=== PATIENT | female | born 1970 | race Caucasian/White ===

== ENCOUNTER 2019-05-13 08:16 | Emergency (ER) | payer MEDICAID ==
[~2019-05-13] VITALS: Ht 167.6 cm; Wt 75.0 kg
[2019-05-13] MEDS ORDERED: normal saline 1000ML IV soln IVB ONE (08:40)
--- NOTE | 2019-05-13 09:25 | NUR ---
Patient is still only responding to painful stimuli. Her sats are in the high 90s but she is snoring a npa was inserted per Dr. Osborn order
[2019-05-13 09:34] LABS: BASOPHILS % (AUTO) 0.6 % (0-1); EOSINOPHILS # (AUTO) 0.2 X10'3 (0-0.9); EOSINOPHILS % (AUTO) 2.4 % (0-6); HEMATOCRIT 37.5 % (35.0-45.0); HEMOGLOBIN 12.6 g/dl (12.0-16.0); LYMPHOCYTES # (AUTO) 2.2 X10'3 (1.1-4.8); LYMPHOCYTES % (AUTO) 30.7 % (21-51); MEAN CORPUSCULAR HEMOGLOBIN 29.4 PG (27.0-31.0); MEAN CORPUSCULAR HGB CONC 33.5 g/dL (33.0-36.5); MEAN CORPUSCULAR VOLUME 87.8 FL (78-98); MEAN PLATELET VOLUME 8.2 FL (7.4-10.4); MONOCYTES # (AUTO) 0.5 X10'3 (0-0.9); NEUTROPHILS # (AUTO) 4.3 X10'3 (1.8-7.7); NEUTROPHILS % (AUTO) 59.3 % (42-75); PLATELET COUNT 278 X10'3 (140-440); RED BLOOD COUNT 4.27 X10'6 (4.20-5.60); RED CELL DISTRIBUTION WIDTH 14.3 % (11.5-14.5); WHITE BLOOD COUNT 7.2 X10'3 (4.5-11.0)
[2019-05-13 09:35] LABS: CLARITY,URINE CLOUDY (Clear); COLOR,URINE STRAW (Yellow); GLUCOSE, URINE NEGATIVE (Neg); KETONES,URINE NEGATIVE (Neg); LEUKOCYTE ESTERASE ,URINE MODERATE (Neg); NITRITES, URINE NEGATIVE (Neg); OCCULT BLOOD,URINE SMALL (Neg); PH,URINE 5.5 (4.8-8.0); PROTEIN,URINE NEGATIVE (Neg); UROBILINOGEN,URINE 0.2 E.U/dL (0.2-1.0)
[2019-05-13 09:37] LABS: UA COLLECTION TYPE STRAIGHT CATH
[2019-05-13 09:40] LABS: SQUAMOUS EPITHELIAL CELL,UR FEW /LPF (FEW); WBC CLUMPS,URINE MANY /HPF (NEGATIVE); WBC,URINE TNTC /HPF (0-4)
[2019-05-13 09:41] LABS: BACTERIA,URINE 2+ /HPF (Neg); RBC,URINE 0-2 /HPF (0-2); TRANSITIONAL EPI CELLS,URINE FEW /HPF
[2019-05-13 09:45] LABS: PARTIAL THROMBOPLASTIN TIME 32 SECONDS (22-32)
[2019-05-13] MEDS ORDERED: CefTRIAXone/D5W-Rocephin 1gm 50 ML IV ONE (09:45)
[2019-05-13 09:49] LABS: URINE AMPHETAMINE SCREEN POSITIVE (Neg); URINE BARBITUATE SCREEN NEGATIVE (Neg); URINE BENZODIAZEPINES SCREEN NEGATIVE (Neg); URINE CANNABINOID SCREEN NEGATIVE (Neg); URINE COCAINE SCREEN NEGATIVE (Neg); URINE METHADONE SCREEN NEGATIVE (Neg); URINE OPIATE SCREEN POSITIVE (Neg); URINE PHENCYCLIDINE SCREEN NEGATIVE (Neg)
[2019-05-13 09:52] LABS: ALANINE AMINOTRANSFERASE 16 U/L (12-78); ALBUMIN 3.2 G/DL (3.4-5.0); ALKALINE PHOSPHATASE 100 IU/L (46-116); ANION GAP 2 (8-16); ASPARTATE AMINO TRANSFERASE 14 U/L (10-37); BILIRUBIN,TOTAL 0.4 MG/DL (0.1-1.0); BLOOD UREA NITROGEN 10 MG/DL (7-18); CALCIUM 8.5 MG/DL (8.5-10.1); CHLORIDE 104 MMOL/L (99-107); CREATININE 0.91 MG/DL (0.40-0.90); GLUCOSE 97 MG/DL (70-104); POTASSIUM 3.6 MMOL/L (3.5-5.1); SODIUM 138 MMOL/L (135-145); TOTAL CARBON DIOXIDE 31.7 MMOL/L (24-32); TOTAL PROTEIN 6.5 G/DL (6.4-8.2); eGFR 67 ML/MIN
[2019-05-13 09:53] LABS: ETHANOL < 0.010 GM/DL (0.0-0.010)
[2019-05-13] MEDS ORDERED: naloxone 0.4 mg/ml inj IV ONE ×2 (10:00→11:10)
--- NOTE | 2019-05-13 10:18 | NUR ---
PT WAS GIVEN NARCAN, SNORING RESPIRATIONS STOPPED, PT STILL VERY SOMNOLENT
--- NOTE | 2019-05-13 11:35 | NUR ---
PT NOW AWAKE, WALKED TO THE BATHROOM TO VOID
--- NOTE | 2019-05-13 11:37 | NUR ---
NPA WAS REMOVED, PER REQUEST
--- NOTE | 2019-05-13 12:15 | NUR ---
Pt called to check on pt. He states that the pt was falling asleep while they were eating breakfast at the hotel. Him and the pt then went back to their room to lay down, and the pt told him she needed to get something out of their car. He fell asleep, and when he woke, the hotel informed him that they found the pt "face down and unresponsive by their car". states that he is unsure what substances she would use other than her prescribed [place] for Bipolar, and Lorazepam for anxiety. Asked for number for pt to contact when she is ready for discharge, asked to have the pt call her own cell as he has it with him at this time.
--- NOTE | 2019-05-13 13:50 | NUR ---
pt awake now but still drowsy and not sure how she got here.
[2019-05-13] MEDS ORDERED: CEPH500C5 PO (14:30)
[2019-05-13 14:45] VITALS: BP 108/75
== END 2019-05-13 14:46 | disposition home or self-care (01) ==
LOC: ER 08:17
DX: T42.4X1A Poisoning by benzodiazepines, accidental (unintentional), initial encounter (principal); G93.40 Encephalopathy, unspecified; F19.10 Other psychoactive substance abuse, uncomplicated; N39.0 Urinary tract infection, site not specified; Z79.2 Long term (current) use of antibiotics; Y92.89 Other specified places as the place of occurrence of the external cause
CPT/HCPCS: 36415; 70450; 71045; 80053; 80178; 80305; 80320; 81001; 82140; 85025; 85610; 85730; 87077; 87088; 87186; 93005; 96361; 96365; 96375; 96376; 99284; J0696; J2310; J7030